=== PATIENT | female | born 2000 ===

== ENCOUNTER 2025-04-14 12:10 | Outpatient (CLI) | payer OTHER | END 2025-04-14 12:12 | disposition home or self-care (01) | LOC: PRENATAL 12:10 | PROVIDERS: ATTEND Obstetrics & Gynecology Maternal & Fetal Medicine | DX: O44.00 Complete placenta previa NOS or without hemorrhage, unspecified trimester (principal); Z3A.21 21 weeks gestation of pregnancy ==